=== PATIENT | male | born 1945 | race Caucasian/White ===

== ENCOUNTER 2023-01-12 10:07 | Emergency (ER) | payer OTHER ==
[2023-01-12] MEDS ORDERED: traMADol HCl 50 MG TAB ONE (10:51)
[2023-01-12] MEDS ORDERED: Ketorolac Tromethamine 60 MG/2 ML VIAL ONE (10:51)
[2023-01-12 11:35] LABS: Hematocrit 54.1 % (42.0-52.0); Hemoglobin 17.6 g/dL (14.0-18.0); Manual Diff?? YES; Mean Corpuscular HGB CONC 32.5 g/dL (32.0-36.0); Mean Corpuscular Hemoglobin 30.6 pg (27.0-31.0); Mean Corpuscular Volume 94.2 fl (78.0-98.0); Mean Platelet Volume 14.8 fL (7.4-10.4); Platelet Count 147 10x3/uL (130-400); RBC Distribution Width 12.9 % (11.5-14.5); Red Blood Cell (RBC) Count 5.74 mill/uL (4.70-6.10); White Blood Cell (WBC) Count 9.5 10x3/uL (4.8-10.8)
[2023-01-12 11:36] LABS: #Basophils 0.1 thou/uL (0.0-0.2); #Eosinphils 0.2 thou/uL (0.0-0.7); #Monocytes 0.6 thou/uL (0.11-0.59); %Basophils 0.8 % (0.0-1.0); %Eosinophils 2.2 % (0.0-10.0); %Lymphocytes 28.3 % (21.0-51.0); %Monocytes 6.1 % (0.0-10.0); %Neutrophils 62.6 % (42.0-75.0)
[2023-01-12 11:37] LABS: MDiff Complete? YES
[2023-01-12 11:48] LABS: Anion Gap 16 mmol/L (10-20); BUN (Urea Nitrogen) 17 mg/dL (8.4-25.7); Calc. Creatinine Clearance 0 mL/min (70-130); Carbon Dioxide 24 mmol/L (23-31); Chloride 100 mmol/L (98-107); Estimated GFR 89; Potassium 3.9 mmol/L (3.5-5.1); Sodium 136 mmol/L (136-145)
[2023-01-12 11:49] LABS: ALT (SGPT) 14 U/L (8-55); AST (SGOT) 15 U/L (5-34); Alkaline Phosphatase 106 U/L (40-110); Bilirubin, Total 0.7 mg/dL (0.2-1.2); Calcium 10.3 mg/dL (7.6-10.4); Globulin 3.4 g/dL (2.4-3.5); Glucose 98 mg/dL (83-110); Protein, Total 7.4 g/dL (5.8-8.1)
[2023-01-12 12:00] LABS: Troponin I 0.024 ng/mL (< 0.028)
[2023-01-12] MEDS ORDERED: Iopamidol 370 76% 100 ML VIAL ONE (13:06)
[2023-01-12] MEDS ORDERED: HYDROcodone/Acetaminophen 5/325 mg Tablet ONE (14:42)
== END 2023-01-12 14:55 | disposition home or self-care (01) ==
LOC: BURERS 10:07
DX: M48.04 Spinal stenosis, thoracic region (principal); M54.6 Pain in thoracic spine; R91.8 Other nonspecific abnormal finding of lung field; I10 Essential (primary) hypertension; M10.9 Gout, unspecified; F17.210 Nicotine dependence, cigarettes, uncomplicated; X50.0XXA Overexertion from strenuous movement or load, initial encounter; Y93.F2 Activity, caregiving, lifting
CPT/HCPCS: 71260; 72072; 74177; 80053; 84484; 85025; 93005; 96372; J1885; Q9967